=== PATIENT | female | born 1985 | race Caucasian/White ===

== ENCOUNTER 2023-09-30 21:19 | Emergency (ER) | payer MEDICAID, OTHER ==
[~2023-09-30] VITALS: Ht 162.6 cm; Wt 112.0 kg
[2023-09-30 22:00] VITALS: TEMP 98.2; O2SAT 97
[2023-10-01 02:43] VITALS: BP 121/84; PULSE 78; RESP 17
[2023-10-01] MEDS: KETOROLAC 15MG/ML VIAL IM ONE (02:43)
== END 2023-10-01 02:43 | disposition home or self-care (01) ==
LOC: ER 21:19
DX: S06.0X0A Concussion without loss of consciousness, initial encounter (principal); S40.011A Contusion of right shoulder, initial encounter; M25.551 Pain in right hip; Y08.89XA Assault by other specified means, initial encounter; Y93.89 Activity, other specified; Y92.89 Other specified places as the place of occurrence of the external cause; Y99.8 Other external cause status
CPT/HCPCS: 81025; 73030; 70450; 99285; 96372; J1885; Z7610; A4565

== ENCOUNTER 2025-03-18 20:52 | Emergency (ER) | payer MEDICAID, OTHER ==
[~2025-03-18] VITALS: Ht 162.6 cm; Wt 105.6 kg
[2025-03-18 20:54] VITALS: O2SAT 99
[2025-03-18 21:21] LABS: CLARITY URINE CLEAR (CLEAR); COLOR URINE YELLOW (YELLOW); GLUCOSE URINE NEGATIVE (NEGATIVE); KETONES URINE NEGATIVE (NEGATIVE); LEUKOCYTE ESTERASE URINE NEGATIVE (NEGATIVE); NITRITE URINE NEGATIVE (NEGATIVE); OCCULT BLOOD URINE NEGATIVE (NEGATIVE); PH URINE 5.5 (4.5-8.0); PROTEIN URINE NEGATIVE (NEGATIVE); SPECIFIC GRAVITY URINE 1.021 (1.005-1.030); UROBILINOGEN URINE 0.2 E.U./dL (0.2-1.0)
[2025-03-18 21:49] LABS: BASOPHILS % 0.4 % (0.0-2.0); EOSINOPHILS % 3.6 % (0.0-5.0); HEMATOCRIT. 49.0 % (36.0-48.0); HEMOGLOBIN. 16.4 g/dL (12.0-16.0); LYMPHOCYTES % 38.1 % (20.0-50.0); MEAN PLATELET VOLUME 9.1 fl (7.4-10.4); MONOCYTES % 7.3 % (2.0-8.0); NEUTROPHILS % 50.6 % (40.0-76.0); PLATELET 242 x1000/uL (130-400); RED BLOOD CELL COUNT 5.42 mill/uL (4.2-5.4); RED CELL DISTRIBUTION WIDTH 13.2 % (11.6-14.6)
[2025-03-18 21:58] LABS: HCG SCREEN NEGATIVE
[2025-03-18 22:06] LABS: CREATININE 1.2 mg/dL (0.6-1.0); UREA NITROGEN BLOOD 14 mg/dL (9-23)
[2025-03-18 22:08] LABS: ASPARTATE AMINOTRANSFERASE 27 IU/L (<34); BILIRUBIN DIRECT 0.2 mg/dL (<=3.0); BILIRUBIN TOTAL 0.6 mg/dL (0.1-1.0); PROTEIN TOTAL 7.1 g/dL (6.0-8.3)
[2025-03-19 01:35] VITALS: BP 131/89; PULSE 60; RESP 16; TEMP 36.7; O2SAT 96
== END 2025-03-19 01:38 | disposition home or self-care (01) ==
LOC: ER 20:52
DX: R10.9 Unspecified abdominal pain (principal); K76.0 Fatty (change of) liver, not elsewhere classified
CPT/HCPCS: 36415; 76700; 80048; 80076; 81003; 81025; 84703; 85025; 93005; 99284